=== PATIENT | male | born 1990 | race African-American/Black ===

== ENCOUNTER 2017-04-18 11:59 | Emergency (ER) | payer MEDICAID, SELFPAY ==
[2017-04-18] MEDS ORDERED: Ketorolac Tromethamine 30 MG/ML VIAL ONE (12:18)
[2017-04-18 12:45] LABS: Bilirubin Small (Negative); Blood, Urine Negative (Negative); Glucose, Urine (Dipstick) Negative (Negative); Ketone, Urine Trace mg/dL (Negative); Nitrite Negative (Negative); Protein, Urine (Dipstick) Trace mg/dL (Neg-Trace)
== END 2017-04-18 13:05 | disposition home or self-care (01) ==
LOC: ERS 11:59
DX: S39.012A Strain of muscle, fascia and tendon of lower back, initial encounter (principal); X58.XXXA Exposure to other specified factors, initial encounter
CPT/HCPCS: 81003; 96372; J1885

== ENCOUNTER 2017-07-19 10:28 | Emergency (ER) | payer SELFPAY ==
[2017-07-19] MEDS ORDERED: Acetaminophen 500 MG TAB ONE (10:48)
== END 2017-07-19 11:22 | disposition home or self-care (01) ==
LOC: ERS 10:28
DX: J11.1 Influenza due to unidentified influenza virus with other respiratory manifestations (principal)
CPT/HCPCS: 99283

== ENCOUNTER 2017-08-31 14:41 | Emergency (ER) | payer SELFPAY ==
[2017-08-31 15:11] LABS: #Basophils 0.1 thou/uL (0.0-0.2); #Eosinphils 0.1 thou/uL (0.0-0.7); #Lymphocytes 2.5 thou/uL (1.20-3.40); #Monocytes 0.9 thou/uL (0.11-0.59); #Neutrophils 5.3 thou/uL (1.40-6.50); %Basophils 1.2 % (0.0-1.0); %Eosinophils 1.7 % (0.0-10.0); %Lymphocytes 28.3 % (21.0-51.0); %Monocytes 9.5 % (0.0-10.0); %Neutrophils 59.2 % (42.0-75.0); Hemoglobin 16.1 g/dL (14.0-18.0); Mean Corpuscular HGB CONC 33.4 g/dL (32.0-36.0); Mean Corpuscular Hemoglobin 30.7 pg (27.0-31.0); Mean Corpuscular Volume 91.9 fl (80.0-94.0); Mean Platelet Volume 7.7 fL (7.4-10.4); Platelet Count 257 thou/uL (130-400); Red Blood Cell (RBC) Count 5.24 mill/uL (4.70-6.10); White Blood Cell (WBC) Count 8.9 thou/uL (4.8-10.8)
[2017-08-31 15:32] LABS: ALT (SGPT) 43 U/L (8-55); AST (SGOT) 29 U/L (5-34); Albumin 4.6 g/dL (3.5-5.0); Alkaline Phosphatase 69 U/L (40-150); Anion Gap 11 mmol/L (10-20); BUN (Urea Nitrogen) 17 mg/dL (8.9-20.6); Bilirubin, Total 0.4 mg/dL (0.2-1.2); Calc. Creatinine Clearance 0 mL/min (70-130); Carbon Dioxide 26 mmol/L (22-29); Chloride 103 mmol/L (98-107); Estimated GFR-MDRD 87; Glucose 99 mg/dL (70-105); Lipase 17 U/L (8-78); Potassium 4.2 mmol/L (3.5-5.1); Protein, Total 7.6 g/dL (6.0-8.3); Sodium 136 mmol/L (136-145)
[2017-08-31 15:56] LABS: Bilirubin Negative (Negative); Blood, Urine Negative (Negative); Clarity CLEAR (Clear); Glucose, Urine (Dipstick) Negative (Negative); Leukocyte Negative (Negative); Nitrite Negative (Negative); Protein, Urine (Dipstick) Negative (Neg-Trace); Specific Gravity, Urine 1.026 (1.002-1.036); Urobilinogen 0.2 mg/dL (0.2-1.0)
== END 2017-08-31 17:45 | disposition home or self-care (01) ==
LOC: ERS 14:41
DX: R10.33 Periumbilical pain (principal)
CPT/HCPCS: 36415; 80053; 81003; 83690; 85025; 96372

== ENCOUNTER 2017-11-06 13:54 | Emergency (ER) | payer BC, SELFPAY | END 2017-11-06 14:40 | disposition home or self-care (01) | LOC: SCSER 13:54 | DX: L27.0 Generalized skin eruption due to drugs and medicaments taken internally (principal) | CPT/HCPCS: 99283 ==

== ENCOUNTER 2017-12-27 13:11 | Emergency (ER) | payer SELFPAY ==
[2017-12-27] MEDS ORDERED: Ibuprofen 800 MG TAB ONE (13:25)
--- NOTE | 2017-12-27 14:18 | RAD ---
LEFT ANKLE THREE VIEWS: INDICATIONS: Injury with pain. FINDINGS: No evidence of soft tissue swelling. No evidence of fracture. IMPRESSION: No acute osseous abnormality. POS: [facility]
== END 2017-12-27 14:16 | disposition home or self-care (01) ==
LOC: SCSER 13:11
DX: S93.402A Sprain of unspecified ligament of left ankle, initial encounter (principal); X50.1XXA Overexertion from prolonged static or awkward postures, initial encounter

== ENCOUNTER 2018-09-17 09:34 | Outpatient (CLI) | payer OTHER ==
--- NOTE | 2018-09-17 13:04 | MRI ---
MRI OF LEFT KNEE PERFORMED WITHOUT CONTRAST ENHANCEMENT: HISTORY: Internal derangement of left knee. Evaluation for lateral meniscus tear. COMPARISON: None. FINDINGS: An ACL graft is present. The graft is somewhat thinned in appearance, but does appear to be intact. The posterior cruciate ligament is intact. The medial meniscus has a normal shape and appearance. There is a longitudinally oriented tear or po ssibly post meniscectomy change near the red zone region of the posterior horn of the lateral meniscu s. There is a small radially oriented free edge tear involving the body of the meniscus with increas ed signal change extending into the substance of the meniscus also extending into the anterior horn r egion as mucoid degeneration or a horizontally oriented tear. There is a prominent parameniscal cyst formation seen laterally. Some of this is deep to the lateral collateral ligament, but some is near the meniscocapsular junction and also extends deep to the iliotibial band. The parameniscal cyst fo rmation also involves the area directly to the anterior horn and the region of Hoffa's fat pad. Medial and lateral collateral ligaments and iliotibial band regions are unremarkable. Patellar articular cartilage is intact. Postoperative changes of the middle third of the patellar te ndon are noted related to the ACL repair. Medial and lateral patellar retinaculum are intact. IMPRESSION: 1. Anterior cruciate ligament graft which appears intact. 2. Prominent parameniscal cyst formation along the body and anterior horn region of the lateral meni scus. There is a tear involving the body of the meniscus more along the undersurface with a radially oriented free edge tear also in this region. There is fluid density signal which extends into the a nterior horn which is probably horizontal extension of the tear or mucoid degeneration in addition to the associated parameniscal cyst formation. 3. There is also some increased longitudinally oriented signal change within the posterior horn of t he lateral meniscus near the meniscocapsular junction. This is not definite true fluid density and i t may be the sequelae of a previous repair rather than an acute longitudinal red zone tear. Clinical correlation recommended. POS: [facility]
== END 2018-09-17 09:35 | disposition home or self-care (01) ==
LOC: SCSMRI 09:34
PROVIDERS: ATTEND Orthopaedic Surgery
DX: M23.92 Unspecified internal derangement of left knee (principal); M23.042 Cystic meniscus, anterior horn of lateral meniscus, left knee

== ENCOUNTER 2018-12-22 13:54 | Emergency (ER) | payer OTHER, SELFPAY | END 2018-12-22 15:07 | disposition home or self-care (01) | LOC: ERS 13:54 | DX: J32.8 Other chronic sinusitis (principal) | CPT/HCPCS: 99283 ==

== ENCOUNTER 2022-06-29 15:19 | Observation (INO) | payer SELFPAY ==
[~2022-06-29 15:19] MED LIST: Iopamidol-370 76% 500 ML 1 ML ONE
[2022-06-29 16:40] LABS: #Basophils 0.1 thou/uL (0.0-0.2); #Eosinphils 0.1 thou/uL (0.0-0.7); #Monocytes 0.6 thou/uL (0.11-0.59); #Neutrophils 7.8 thou/uL (1.40-6.50); %Basophils 0.7 % (0.0-1.0); %Eosinophils 0.8 % (0.0-10.0); %Lymphocytes 18.6 % (21.0-51.0); %Monocytes 5.8 % (0.0-10.0); %Neutrophils 74.1 % (42.0-75.0); Hemoglobin 16.1 g/dL (14.0-18.0); Mean Corpuscular HGB CONC 34.1 g/dL (32.0-36.0); Mean Corpuscular Hemoglobin 31.2 pg (27.0-31.0); Mean Corpuscular Volume 91.5 fl (78.0-98.0); Mean Platelet Volume 8.4 fL (7.4-10.4); Platelet Count 215 10x3/uL (130-400); RBC Distribution Width 12.2 % (11.5-14.5); Red Blood Cell (RBC) Count 5.16 mill/uL (4.70-6.10); White Blood Cell (WBC) Count 10.6 10x3/uL (4.8-10.8)
[2022-06-29 16:50] LABS: PTT 28.8 sec (22.9-36.1)
[2022-06-29 16:51] LABS: INR-International Normal Ratio 1.1
[2022-06-29 17:02] LABS: Acetaminophen Less than 10.0 mcg/mL (10.0-30.0); Alcohol Less than 10 mg/dL (Less than 10); Salicylate Less than 8.0 mg/dL (15.0-30.0)
[2022-06-29 17:04] LABS: ALT (SGPT) 30 U/L (8-55); AST (SGOT) 32 U/L (5-34); Albumin 4.5 g/dL (3.5-5.0); Alkaline Phosphatase 65 U/L (40-110); Anion Gap 13 mmol/L (10-20); BUN (Urea Nitrogen) 13 mg/dL (8.9-20.6); Bilirubin, Total 0.4 mg/dL (0.2-1.2); Calc. Creatinine Clearance 0 mL/min (70-130); Calcium 9.5 mg/dL (7.8-10.44); Carbon Dioxide 24 mmol/L (22-29); Chloride 103 mmol/L (98-107); Estimated GFR 106; Globulin 2.9 g/dL (2.4-3.5); Glucose 97 mg/dL (70-105); Lipase 16 U/L (8-78); Potassium 3.9 mmol/L (3.5-5.1); Protein, Total 7.4 g/dL (6.0-8.3); Sodium 136 mmol/L (136-145)
[2022-06-29] MEDS ORDERED: Labetalol HCl 100 MG/20 ML VIAL ONE (17:12)
[2022-06-29] MEDS ORDERED: Aspirin Chewable 81 MG TAB ONE (17:13)
[2022-06-29] MEDS ORDERED: hydrALAZINE 20 MG/ML VIAL SLOW IVP PRN (19:40)
[2022-06-29] MEDS ORDERED: Bisacodyl 5 MG TAB PO PRN (19:42)
[2022-06-29] MEDS ORDERED: Ondansetron ODT 4 MG TAB PO PRN (19:42)
[2022-06-29] MEDS ORDERED: Acetaminophen 325 MG TAB PO PRN (19:42)
[2022-06-29] MEDS ORDERED: Senokot S 8.6-50 MG TAB PO PRN (19:42)
[2022-06-29] MEDS ORDERED: Atorvastatin Calcium 40 MG TAB PO SCH (21:00)
[2022-06-29 22:09] VITALS: BMI 42.6
[2022-06-29] MEDS: Famotidine 20 MG TAB PO SCH (23:23)
[2022-06-30 05:54] LABS: Anion Gap 13 mmol/L (10-20); BUN (Urea Nitrogen) 13 mg/dL (8.9-20.6); Calc. Creatinine Clearance 229 mL/min (70-130); Calcium 9.2 mg/dL (7.8-10.44); Carbon Dioxide 25 mmol/L (22-29); Cardiac Risk 5.1 (Less than 4.5); Chloride 103 mmol/L (98-107); Cholesterol 256 mg/dl (< 200 Desired); Estimated GFR 109; Glucose 86 mg/dL (70-105); HDL Cholesterol 50 mg/dL (>60 Neg Risk); LDL Cholesterol, Calculated 170 mg/dL; Potassium 3.9 mmol/L (3.5-5.1); Sodium 137 mmol/L (136-145); Triglycerides 182 mg/dL (Less than 150)
[2022-06-30] MEDS: Famotidine 20 MG TAB PO SCH (08:37)
[2022-06-30] MEDS ORDERED: Amlodipine 5 MG TAB PO SCH (09:00)
[2022-06-30] MEDS ORDERED: Aspirin 81 mg Enteric Coated Tablet PO SCH (09:00)
[2022-06-30 15:41] VITALS: BP 141/87; TEMP 98.2
== END 2022-06-30 17:59 | disposition home or self-care (01) ==
LOC: ERS 15:19 → NEURO 19:45
PROVIDERS: ADMIT Family Medicine; ATTEND Family Medicine
DX: G45.9 Transient cerebral ischemic attack, unspecified (principal); I16.1 Hypertensive emergency; I10 Essential (primary) hypertension; G47.30 Sleep apnea, unspecified; I08.8 Other rheumatic multiple valve diseases; E66.01 Morbid (severe) obesity due to excess calories; Z68.41 Body mass index [BMI] 40.0-44.9, adult; Z20.822 Contact with and (suspected) exposure to COVID-19
CPT/HCPCS: 36415; 36416; 70450; 70496; 70498; 70551; 71045; 80048; 80053; 80061; 80307; 83690; 84443; 84484; 85025; 85610; 85730; 93005; 93306; 96374; G0378; Q9967; U0003; U0005

== ENCOUNTER 2023-11-13 16:19 | Outpatient (CLI) | payer OTHER ==
[2023-11-13 16:54] LABS: #Basophils 0.04 10x3/uL (0.0-0.2); #Eosinphils 0.12 10x3/uL (0.0-0.5); #Monocytes 0.62 10x3/uL (0.0-1.1); #Neutrophils 4.62 10x3/uL (1.5-8.4); %Basophils 0.5 % (0.0-2.0); %Eosinophils 1.5 % (0.0-6.0); %Lymphocytes 31.7 % (18.0-47.0); %Monocytes 7.8 % (0.0-10.0); Hematocrit 44.1 % (38.8-50.0); Hemoglobin 15.8 g/dL (13.5-17.5); Mean Corpuscular HGB CONC 35.8 g/dL (32.0-36.0); Mean Corpuscular Hemoglobin 30.6 pg (27.0-33.0); Mean Corpuscular Volume 85.3 fL (81.2-95.1); Mean Platelet Volume 10.2 fL (7.4-10.4); Platelet Count 242 10x3/uL (150-450); RBC Distribution Width 12.6 % (11.5-14.5); Red Blood Cell (RBC) Count 5.17 10x6/uL (4.32-5.72)
[2023-11-13 17:04] LABS: Anion Gap 13 mmol/L (10-20); BUN (Urea Nitrogen) 13 mg/dL (8.9-20.6); Calc. Creatinine Clearance 0 mL/min (70-130); Calcium 9.5 mg/dL (7.8-10.44); Carbon Dioxide 25 mmol/L (22-29); Chloride 107 mmol/L (98-107); Estimated GFR 89; Glucose 98 mg/dL (70-105); Potassium 3.8 mmol/L (3.5-5.1); Sodium 141 mmol/L (136-145)
== END 2023-11-13 16:20 | disposition home or self-care (01) ==
LOC: LABBT 16:19
PROVIDERS: ATTEND Orthopaedic Surgery
DX: Z01.812 Encounter for preprocedural laboratory examination (principal); M23.201 Derangement of unspecified lateral meniscus due to old tear or injury, left knee
CPT/HCPCS: 80048; 85025

== ENCOUNTER 2023-11-15 06:36 | Observation (INO) | payer OTHER ==
[2023-11-13 16:38] VITALS: BMI 43.5
[2023-11-15] MEDS ORDERED: Lidocaine 2% PF 5 ML VIAL ONE (10:08)
[2023-11-15] MEDS ORDERED: fentaNYL PF 100 MCG/2 ML SYRINGE ONE ×3 (10:08→11:54)
[2023-11-15] MEDS ORDERED: PROPOFOL 20 ML ONE ×2 (10:08→10:45)
[2023-11-15] MEDS ORDERED: CEFAZOLIN 2 GM VIAL ONE (10:17)
[2023-11-15] MEDS ORDERED: Sodium Chloride 0.9% 100 ML ONE (10:18)
[2023-11-15] MEDS ORDERED: Bupivacaine PF 0.5% 30 ML VIAL ONE (10:22)
[2023-11-15] MEDS ORDERED: Ondansetron PF 4 MG/2 ML Vial ONE (10:50)
[2023-11-15] MEDS ORDERED: HYDROmorphone 0.5 MG/0.5 ML SYRINGE ONE ×2 (12:13→12:26)
[2023-11-15] MEDS ORDERED: fentaNYL 50 mcg/mL 1 mL Vial ONE (13:05)
[2023-11-15] MEDS ORDERED: HYDROcodone/Acetaminophen 5/325 mg Tablet ONE (13:27)
[2023-11-15] MEDS ORDERED: oxyCODONE 5 MG TAB ONE ×2 (14:13→15:12)
[2023-11-15] MEDS ORDERED: Morphine 2 MG/ML VIAL ONE ×2 (14:45→15:13)
[2023-11-15] MEDS ORDERED: CeleCOXIB 100 MG CAP ONE (16:32)
[2023-11-15] MEDS ORDERED: CeleCOXIB 100 MG CAP PO SCH (19:00)
[2023-11-15] MEDS: oxyCODONE 5 MG TAB PO SCH (21:00)
[2023-11-15] MEDS: HYDROcodone/Acetaminophen 10/325 mg Tablet PO PRN (22:26)
[2023-11-16] MEDS: Acetaminophen 325 MG TAB ONE (01:28)
[2023-11-16 08:51] VITALS: BP 129/84; TEMP 97.8
[2023-11-16] MEDS ORDERED: CeleCOXIB 100 MG CAP PO SCH ×2 (09:00)
[2023-11-16] MEDS: CeleCOXIB 100 MG CAP PO SCH (09:00)
== END 2023-11-16 15:39 | disposition home or self-care (01) ==
LOC: SDC 06:36 → MSONC 17:49
PROVIDERS: ADMIT Orthopaedic Surgery; ATTEND Orthopaedic Surgery
PROC: 0SBD4ZZ Excision of Left Knee Joint, Percutaneous Endoscopic Approach (ICD-10-PCS; principal; 2023-11-16)
PROC: 0SCD4ZZ Extirpation of Matter from Left Knee Joint, Percutaneous Endoscopic Approach (ICD-10-PCS; 2023-11-16)
DX: M23.201 Derangement of unspecified lateral meniscus due to old tear or injury, left knee (principal); M23.007 Cystic meniscus, unspecified meniscus, left knee
CPT/HCPCS: J0665; J1170; J2001; J2272; J2405; J2704; J3010; J3490

== ENCOUNTER 2024-06-27 23:39 | Emergency (ER) | payer OTHER ==
[2024-06-28] MEDS ORDERED: Nitroglycerin 0.4 MG TAB 1 EACH ONE (00:59)
[2024-06-28] MEDS ORDERED: hydrALAZINE 25 MG TAB ONE (00:59)
[2024-06-28] MEDS ORDERED: Aspirin Chewable 81 MG TAB ONE (00:59)
[2024-06-28 02:12] LABS: #Basophils 0.03 10x3/uL (0.0-0.2); %Basophils 0.3 % (0.0-1.0); %Eosinophils 0.4 % (0.0-10.0); %Lymphocytes 10.4 % (21.0-51.0); %Monocytes 12.7 % (0.0-10.0); %Neutrophils 75.7 % (42.0-75.0); Hematocrit 43.7 % (42.0-52.0); Hemoglobin 15.4 g/dL (14.0-18.0); Mean Corpuscular HGB CONC 35.2 g/dL (32.0-36.0); Mean Corpuscular Hemoglobin 29.6 pg (27.0-31.0); Mean Platelet Volume 9.9 fL (7.4-10.4); Platelet Count 239 10x3/uL (130-400); RBC Distribution Width 12.5 % (11.5-14.5)
[2024-06-28 02:28] LABS: ALT (SGPT) 47 U/L (Less than 45); AST (SGOT) 86 U/L (11-34); Albumin 4.5 g/dL (3.1-4.5); Alkaline Phosphatase 82 U/L (40-110); Anion Gap 17 mmol/L (10-20); BUN (Urea Nitrogen) 12 mg/dL (8.9-20.6); Bilirubin, Total 0.5 mg/dL (0.3-1.2); Calc. Creatinine Clearance 0 mL/min (70-130); Calcium 9.6 mg/dL (7.8-10.44); Carbon Dioxide 19 mmol/L (22-29); Chloride 104 mmol/L (98-107); Estimated GFR 91; Globulin 3.3 g/dL (2.4-3.5); Glucose 82 mg/dL (70-105); Potassium 4.2 mmol/L (3.5-5.1); Protein, Total 7.8 g/dL (6.0-8.3); Sodium 136 mmol/L (136-145)
[2024-06-28 02:32] LABS: Troponin I Less than 0.010 ng/mL (< 0.028)
[2024-06-28] MEDS ORDERED: Iopamidol 370 76% 100 ML VIAL ONE ×2 (14:30)
== END 2024-06-28 03:54 ==
LOC: ERS 23:39
DX: J10.1 Influenza due to other identified influenza virus with other respiratory manifestations (principal); I10 Essential (primary) hypertension; R79.89 Other specified abnormal findings of blood chemistry; Z55.6 Problems related to health literacy; Z75.3 Unavailability and inaccessibility of health-care facilities
CPT/HCPCS: 36416; 70450; 70496; 70498; 71045; 71275; 74174; 80053; 83880; 84484; 85025; 85379; 87428; 93005; Q9967